=== PATIENT | female | born 1990 | race African-American/Black ===

== ENCOUNTER 2021-06-03 16:16 | Inpatient (IN) ==
[2021-06-03] MEDS ORDERED: MEPERIDINE 50 MG/1 ML VIAL IM PRN (17:45)
[2021-06-03] MEDS ORDERED: BUTORPHANOL 2 MG/ML VIAL IV PRN (17:45)
[2021-06-03] MEDS: ONDANSETRON 4 MG/2 ML VIAL IV PRN ×2 (18:07→20:55)
[2021-06-03] MEDS: LACTATED RINGERS 1,000 ML IV SCH ×2 (18:07→20:00)
[2021-06-03 18:16] LABS: Basophils % 0.2 % (0.0-0.8); Eosinophils # 0.1 10*3/uL (0.0-0.87); Eosinophils % 0.8 % (0.00-10.9); Hematocrit 37.3 VOL% (35.7-47.0); Hemoglobin 12.2 GM/DL (12.0-16.0); Immature Granulocytes % 0.5 %; Immature Granulocytes Absolute 0.08 #; Lymphocytes # 2.1 10*3/uL (1.4-4.0); Mean Corpuscular HGB Conc 32.7 GM/DL (32-36); Mean Corpuscular Volume 88.6 FL (87-102); Mean Platelet Volume 13.6 FL (9.6-12.0); Monocytes % 5.6 % (1.7-12.7); Neutrophils % 78.9 % (38.7-73.9); Platelet Count 120 T/CUMM (130-400); Red Blood Count 4.21 MC/CUMM (3.8-5.5); Red Cell Distribution Width 13.7 % (9.3-17.3); White Blood Count 15.2 T/CUMM (4-12)
[2021-06-03 18:35] LABS: Albumin 2.9 G/DL (3.4-5.0); Bilirubin,Total 0.7 MG/DL (0.20-1.00); Calcium 9.7 MG/DL (8.5-10.1); Osmolality,Calculated 273.5 MOS/KG (273-304); Potassium 3.7 MMOL/L (3.5-5.1); Total Protein 7.1 G/DL (6.4-8.2)
[2021-06-03 18:51] LABS: Anisocytosis 1+; Band Neutrophils 1 % (0-10); Eosinophils 1 % (0-10); Lymphocytes 11 % (20-55); Platelet Estimate Decreased; Segmented Neutrophils 85 % (50-85); Total Cells Counted 100
[2021-06-03] MEDS ORDERED: PROMETHAZINE 25 MG/1 ML VIAL IM PRN (19:32)
[2021-06-03] MEDS ORDERED: CITRIC ACID/SODIUM CITRATE 30 ML UDCUP PO ONE (19:32)
[2021-06-03] MEDS ORDERED: hydrOXYzine HCL 25 MG/1 ML VIAL IM PRN (19:32)
[2021-06-03] MEDS ORDERED: ONDANSETRON 4 MG/2 ML VIAL IV PRN (19:32)
[2021-06-03] MEDS ORDERED: diphenhydrAMINE 50 MG/1 ML VIAL IV PRN (19:32)
[2021-06-03] MEDS ORDERED: NALOXONE 0.4 MG/ML VIAL IV PRN (19:32)
[2021-06-03] MEDS ORDERED: FAMOTIDINE 20 MG/2 ML VIAL IV ONE (19:32)
[2021-06-03] MEDS ORDERED: CITRIC ACID/SODIUM CITRATE 30 ML UDCUP ONE (19:33)
[2021-06-03] MEDS ORDERED: fentaNYL 2 MCG/ROPIV 0.2% EPID 100 ML EPIDURAL ONE (19:33)
[2021-06-03] MEDS ORDERED: MEPERIDINE 50 MG/1 ML VIAL IV PRN (19:34)
[2021-06-03] MEDS ORDERED: fentaNYL 2 MCG/ROPIV 0.2% EPID 100 ML EPIDURAL SCH (20:00)
[2021-06-03] MEDS ORDERED: OXYTOCIN/LR 20 UNIT/1,000 ML BAG IV SCH (20:30)
[2021-06-03] MEDS: ePHEDrine 50 MG/ML VIAL IV PRN ×2 (20:54→21:05)
[2021-06-03 21:48] LABS: Bilirubin,Urine Negative (Negative); Blood, Urine Negative (Negative); Glucose,Urine (UA) Negative (Negative); Ketones,Urine 80 mg/dL (Negative); Mucus,Urine Occasional /LPF (Occasional); Nitrite,Urine Negative (Negative); Protein,Urine Negative; RBC,Urine <1 /HPF (0-4); Squamous Epithelial Cell,Urine Occasional /HPF (0-10); Urine Appearance CLEAR (Clear); Urine Color Yellow (Yellow); Urine Specific Gravity 1.017 (1.001-1.035); Urine Urobilinogen < 2.0 EU/DL (0.2-1.0)
[2021-06-03] MEDS ORDERED: miSOPROStoL 200 MCG TABLET VAG PRN (21:59)
[2021-06-03] MEDS ORDERED: METHYLERGONOVINE 0.2 MG/1 ML AMP IM PRN (21:59)
[2021-06-03] MEDS ORDERED: TRANEXAMIC ACID 1,000 MG in SODIUM CHLORIDE 0.9% 100 ML IV PRN (21:59)
[2021-06-03] MEDS ORDERED: CARBOPROST TROMETHAMINE 250 MCG/ML AMP IM PRN (21:59)
[2021-06-03] MEDS ORDERED: TRANEXAMIC ACID 1,000 MG/10 ML VIAL ONE (22:04)
[2021-06-03 23:05] LABS: Cord Arterial Blood HCO3 17.3 MMOL/L
[2021-06-04 01:24] LABS: Cord Venous Blood PCO2 43.1 MMHG; Cord Venous Blood PO2 31.3
[2021-06-04] MEDS ORDERED: oxyCODONE/ACETAMINOPHEN 5-325 MG TABLET PO PRN (03:35)
[2021-06-04] MEDS ORDERED: OXYTOCIN/LR 20 UNIT/1,000 ML BAG IV ONE (03:35)
[2021-06-04] MEDS ORDERED: DIPH/TET/ACEL PERT BOOSTER VACCINE 0.5 ML VIAL IM ONE (03:35)
[2021-06-04] MEDS ORDERED: BISACODYL 10 MG SUPP RECTAL PRN (03:35)
[2021-06-04] MEDS ORDERED: WITCH HAZEL PADS 100/JAR TOP PRN (03:35)
[2021-06-04] MEDS ORDERED: ACETAMINOPHEN 325 MG TABLET PO PRN (03:35)
[2021-06-04] MEDS ORDERED: RHO(D) IMMUNE GLOBULIN 300 MCG SYRINGE IM ONE ×2 (03:35→18:21)
[2021-06-04] MEDS ORDERED: HYDROCORTISONE 2.5% RECTAL CREAM 30 GM TUBE TOP PRN (03:35)
[2021-06-04] MEDS ORDERED: ONDANSETRON 4 MG/2 ML VIAL IV PRN (03:35)
[2021-06-04] MEDS ORDERED: LANOLIN 50% CREAM 0.3 OZ TUBE TOP PRN (03:35)
[2021-06-04] MEDS ORDERED: BENZOCAINE 20%/MENTHOL 0.5% SPRAY 56 GM CAN TOP PRN (03:35)
[2021-06-04] MEDS ORDERED: MEASLES/MUMPS/RUBELLA VACCINE 0.5 ML VIAL SUBCUT ONE (03:35)
[2021-06-04] MEDS: IBUPROFEN 800 MG TABLET PO PRN ×2 (03:41→10:08)
[2021-06-04] MEDS: oxyCODONE/ACETAMINOPHEN 5-325 MG TABLET PO PRN ×3 (03:42→23:30)
[2021-06-04 07:07] LABS: Basophils # 0.1 10*3/uL (0.0-0.2); Basophils % 0.3 % (0.0-0.8); Eosinophils % 0.2 % (0.00-10.9); Hematocrit 30.9 VOL% (35.7-47.0); Hemoglobin 10.2 GM/DL (12.0-16.0); Immature Granulocytes % 0.5 %; Immature Granulocytes Absolute 0.09 #; Lymphocytes # 1.7 10*3/uL (1.4-4.0); Lymphocytes % 9.9 % (21.3-54.2); Mean Corpuscular Volume 90.6 FL (87-102); Mean Platelet Volume 14.5 FL (9.6-12.0); Monocytes % 6.9 % (1.7-12.7); Neutrophils % 82.2 % (38.7-73.9); Platelet Count 82 T/CUMM (130-400); Red Blood Count 3.41 MC/CUMM (3.8-5.5); Red Cell Distribution Width 13.6 % (9.3-17.3)
[2021-06-04 07:31] LABS: Hypochromasia 1+; Microcytosis 1+; Platelet Estimate Decreased
[2021-06-04] MEDS: DOCUSATE SODIUM 100 MG CAPSULE PO SCH (21:30)
[2021-06-05] MEDS: DOCUSATE SODIUM 100 MG CAPSULE PO SCH ×2 (09:30→09:38)
[2021-06-05 11:04] VITALS: BP 111/53
== END 2021-06-05 13:25 | disposition home or self-care (01) | DRG 807 ==
LOC: N.LDOUT 16:16 → N.LD 16:18 → N.OB 06-04 03:54
PROVIDERS: ADMIT Specialist; ATTEND Specialist